=== PATIENT | male | born 1985 | race Hispanic/Latino ===

== ENCOUNTER 2023-02-01 13:55 | Emergency (ER) | payer OTHER ==
[2023-02-01 15:32] LABS: Specific Gravity 1.015 (1.005-1.030); Urine Bilirubin Negative (Negative); Urine Blood Negative (Negative); Urine Clarity Clear (Clear); Urine Color Yellow (Yellow); Urine Glucose Negative (Negative); Urine Protein Negative (Negative)
[2023-02-01] MEDS ORDERED: KETOROLAC 30 MG/ML INJ ONE (15:32)
[2023-02-01] MEDS ORDERED: HYDROCODONE/APAP 5/325 MG TAB ONE (15:32)
[2023-02-01] MEDS ORDERED: ONDANSETRON 4 MG (ODT) TAB ONE (15:32)
--- NOTE | 2023-02-01 16:19 | RAD REPORT ---
EXAM DESCRIPTION: RAD - Abdomen 1 View (KUB) - 02/01/2023 4:12 pm CLINICAL HISTORY: FLANK PAIN Pain COMPARISON: <Comparisons> FINDINGS: The bowel gas pattern is non-obstructive. No evidence of free air or pneumatosis. No suspi cious calcifications. No significant bony findings. IMPRESSION: Negative examination.
--- NOTE | 2023-02-01 17:04 | ER ---
Nurse's Notes [facility] Name: Supa Pereira Age: 38 yrs Sex: Male : 1985 Arrival Date: 02/01/2023 Time: 13:55 Bed 19 Private MD: Diagnosis: Cellulitis of buttock;Abdominal pain, unspecified-left flank pain Presentation: 02/01 14:06 Chief complaint: Patient states: L BUTTOCKS AND ABD PAIN. Coronavirus screen: Vaccine dd1 status: Patient reports receiving the 2nd dose of the covid vaccine. Patient reports receiving the 1st dose of the Covid vaccine. Client denies travel out of the [place] in the last 14 days. Ebola Screen: No symptoms or risks identified at this time. Initial Sepsis Screen: Does the patient meet any 2 criteria? HR > 90 bpm. No. Patient's initial sepsis screen is negative. Does the patient have a suspected source of infection? No. Patient's initial sepsis screen is negative. Risk Assessment: Do you want to hurt yourself or someone else? Patient reports no desire to harm self or others. Onset of symptoms was February 01, 2023. 14:06 Method Of Arrival: Ambulatory dd1 14:06 Acuity: [place] 4 dd1 Triage Assessment: 14:17 General: Appears in no apparent distress. comfortable, Behavior is calm, cooperative. dd1 Pain: Complains of pain in buttocks. Historical: - Allergies: 14:10 UNKNOWN BLOOD PRESSURE MEDICATION; dd1 - Home Meds: 14:10 levothyroxine 75 mcg capsule once [Active]; olmesartan 20 mg oral tablet once [Active]; dd1 - PSHx: 14:10 None; dd1 - Immunization history:: Adult Immunizations up to date. - Social history:: Smoking status: Patient denies any tobacco usage or history of. - Family history:: not pertinent. Screenin:03 [facility] ED Fall Risk Assessment (Adult) History of falling in the last 3 months, iw including since admission No falls in past 3 months (0 pts) Confusion or Disorientation No (0 pts) Intoxicated or Sedated No (0 pts) Impaired Gait No (0 pts) Mobility Assist Device Used No (0 pt) Altered Elimination No (0 pt) Score/Fall Risk Level 0 - 2 = Low Risk Oriented to surroundings, Maintained a safe environment. Abuse screen: Denies threats or abuse. Denies injuries from another. Nutritional screening: No deficits noted. Tuberculosis screening: No symptoms or risk factors identified. Assessment: 15:02 Reassessment: Patient appears in no apparent distress at this time. Patient and/or iw family updated on plan of care and expected duration. Pain level reassessed. Patient is alert, oriented x 3, equal unlabored respirations, skin warm/dry/pink. General: Appears in no apparent distress. comfortable, Behavior is calm, cooperative. Pain: Complains of pain in buttocks. 17:19 Reassessment: Patient appears in no apparent distress at this time. Patient and/or db family updated on plan of care and expected duration. Pain level reassessed. Patient is alert, oriented x 3, equal unlabored respirations, skin warm/dry/pink. Patient states feeling better. General: Appears in no apparent distress. comfortable. Vital Signs: 14:06 Pulse 97; Resp 16; Temp 99.9; Weight 233.6 kg; Height 5 ft. 11 in. ; Pain 4/10; dd1 14:16 BP 152 / 93; dd1 14:16 Pain 4/10; dd1 16:30 BP 148 / 88; Pulse 88; Resp 16; Pulse Ox 99% on R/A; db 14:06 Body Mass Index 71.83 (233.60 kg, 180.34 cm) dd1 14:06 Pain Scale: Adult dd1 14:16 Pain Scale: Adult dd1 ED Course: 13:58 Patient arrived in ED. ts1 14:03 Natividad Milton MD is Attending Physician. cp3 14:10 Triage completed. dd1 14:17 Arm band placed on. dd1 15:00 Connie Henley, RN is Primary Nurse. iw 15:03 Patient has correct armband on for positive identification. Placed in gown. Bed in low iw position. Call light in reach. Side rails up X 1. 16:14 XRAY Abdomen 1 View (KUB) In Process Unspecified. EDMS 17:02 Madhav Oliva MD is Referral Physician. cp3 17:20 Provided Education on: DISCHARGE. db 17:20 No provider procedures requiring assistance completed. Patient did not have IV access db during this emergency room visit. Administered Medications: 12:34 Drug: Ondansetron PO 4 mg Route: PO; db 13:00 Follow up: Response: No adverse reaction iw 15:34 Drug: Ketorolac IM 30 mg Route: IM; Site: right deltoid; db 16:00 Follow up: Response: No adverse reaction iw 15:35 Drug: HYDROcodone-acetaminophen PO 5 mg-325 mg 1 tabs Route: PO; db 16:30 Follow up: Response: No adverse reaction; Pain is decreased iw Medication: 17:20 VIS not applicable for this client. db Outcome: 17:04 Discharge ordered by . all3 17:20 Discharged to home ambulatory. db 17:20 Condition: stable 17:20 Discharge instructions given to patient, Instructed on discharge instructions, follow up and referral plans. Prescriptions given X 3. 17:21 Patient left the ED. db Signatures: Dispatcher [employer] Natividad Diggs MD MD cp3 Connie Henley, RN Debbie Chappell, RN RN Natalie White PAS PAS ts1 Asim Willson, RN RN dd1
--- NOTE | 2023-02-01 17:04 | EDPHYS ---
Physician Documentation [facility] Name: Supa Pereira Age: 38 yrs Sex: Male : 1985 Arrival Date: 02/01/2023 Time: 13:55 Bed 19 Private MD: ED Physician Natividad Milton HPI: 02/01 17:10 This 38 yrs old Male presents to ER via Ambulatory with complaints of PAIN ON cp3 LEFT SIDE / KNOT ON SACRUM. 15:36 Patient is a 38-year-old male who endorses left-sided abdominal discomfort that cp3 radiates from the left flank to the left lower quadrant. The pain started roughly 2 days ago has been intermittent in nature and is associated with nausea and 5 episodes of diarrhea. The diarrhea has resolved. No evidence of melena. The patient also endorsed that he has an area of redness to his left buttocks. Patient denies fever, chills, vomiting. Historical: - Allergies: 14:10 UNKNOWN BLOOD PRESSURE MEDICATION; dd1 - Home Meds: 14:10 levothyroxine 75 mcg capsule once [Active]; olmesartan 20 mg oral tablet once [Active]; dd1 - PSHx: 14:10 None; dd1 - Immunization history:: Adult Immunizations up to date. - Social history:: Smoking status: Patient denies any tobacco usage or history of. - Family history:: not pertinent. ROS: 15:38 Constitutional: Negative for fever, chills, and weight loss, Eyes: Negative for injury, cp3 pain, redness, and discharge, ENT: Negative for injury, pain, and discharge, Neck: Negative for injury, pain, and swelling, Cardiovascular: Negative for chest pain, palpitations, and edema, Respiratory: Negative for shortness of breath, cough, wheezing, and pleuritic chest pain, MS/Extremity: Negative for injury and deformity, Skin: Negative for injury, rash, and discoloration, Neuro: Negative for headache, weakness, numbness, tingling, and seizure, Psych: Negative for depression, anxiety, suicide ideation, homicidal ideation, and hallucinations, Allergy/Immunology: Negative for hives, rash, and allergies, Endocrine: Negative for neck swelling, polydipsia, polyuria, polyphagia, and marked weight changes, Hematologic/Lymphatic: Negative for swollen nodes, abnormal bleeding, and unusual bruising. 15:38 Abdomen/GI: Positive for nausea, vomiting, diarrhea, Left flank pain. 15:38 Back: Positive for flank pain, on the left. 15:38 : Negative for urinary symptoms, hematuria, difficulty urinating, foul smelling urine. 15:38 Skin: Positive for erythema, Patient endorses area of erythema on right buttocks. Exam: 15:38 Constitutional: This is a well developed, well nourished patient who is awake, alert, cp3 and in no acute distress. Head/Face: Normocephalic, atraumatic. Neck: Trachea midline, no thyromegaly or masses palpated, and no cervical lymphadenopathy. Supple, full range of motion without nuchal rigidity, or vertebral point tenderness. No Meningismus. Chest/axilla: Normal chest wall appearance and motion. Nontender with no deformity. No lesions are appreciated. Cardiovascular: Regular rate and rhythm with a normal S1 and S2. No gallops, murmurs, or rubs. Normal PMI, no JVD. No pulse deficits. Respiratory: Lungs have equal breath sounds bilaterally, clear to auscultation and percussion. No rales, rhonchi or wheezes noted. No increased work of breathing, no retractions or nasal flaring. Abdomen/GI: Soft, non-tender, with normal bowel sounds. No distension or tympany. No guarding or rebound. No evidence of tenderness throughout. Back: No spinal tenderness. No costovertebral tenderness. Full range of motion. 15:38 : Patient with area of erythema without fluctuance or induration to the left buttocks 2 x 3 cm. No crepitus, no purulent drainage. No evidence of skin breakdown no necrotizing lesions. 16:59 : no swelling noted to the scrotum, no erythema noted to the scrotum. cp3 Vital Signs: 14:06 Pulse 97; Resp 16; Temp 99.9; Weight 233.6 kg; Height 5 ft. 11 in. ; Pain 4/10; dd1 14:16 BP 152 / 93; dd1 14:16 Pain 4/10; dd1 16:30 BP 148 / 88; Pulse 88; Resp 16; Pulse Ox 99% on R/A; db 14:06 Body Mass Index 71.83 (233.60 kg, 180.34 cm) dd1 14:06 Pain Scale: Adult dd1 14:16 Pain Scale: Adult dd1 MDM: 14:03 Patient medically screened. cp3 15:38 Differential Diagnosis Differential diagnosis includes left flank pain, soft tissue cp3 infection, soft tissue abscess, UTI, kidney stone. Data reviewed: vital signs, nurses notes, lab test result(s). Consideration of Admission/Observation Escalation of care including admission/observation considered. Historians other than the Patient: Visitor at bedside endorses patient also complained of nausea over the last few days. Special discussion: Discussed with patient that would typically do a CT without contrast to assess for renal stone but given patient's BMI will not be able to accommodate CT scanning at this time we will do a KUB in light of mild flank pain and no evidence of hematuria or other symptoms suggestive of acute renal stone. Patient comfortable with plan of care. 16:59 Independent interpretation of the following test(s) in the Emergency Department X-Ray: cp3 My interpretation is KUB interpreted by me and is negative acute for renal stone, bowel obstruction. Response to treatment: the patient's symptoms have markedly improved after treatment. ED course: Patient improved with [place], Toradol, Zofran IM. 08 15:32 Order name: Urinalysis w/ reflexes; Complete Time: 15:35 EDMS 02/01 15:03 Order name: XRAY Abdomen 1 View (KUB); Complete Time: 16:35 cp3 Administered Medications: 12:34 Drug: Ondansetron PO 4 mg Route: PO; db 13:00 Follow up: Response: No adverse reaction iw 15:34 Drug: Ketorolac IM 30 mg Route: IM; Site: right deltoid; db 16:00 Follow up: Response: No adverse reaction iw 15:35 Drug: HYDROcodone-acetaminophen PO 5 mg-325 mg 1 tabs Route: PO; db 16:30 Follow up: Response: No adverse reaction; Pain is decreased iw Disposition Summary: 02/01/23 17:04 Discharge Ordered Location: Home cp3 Problem: new cp3 Symptoms: have improved cp3 Condition: Stable cp3 Diagnosis - Cellulitis of buttock cp3 - Abdominal pain, unspecified - left flank pain cp3 Followup: cp3 - With: Private Physician - When: - Reason: Wound Recheck Followup: cp3 - With: Madhav Oliva MD - When: - Reason: Wound Recheck Discharge Instructions: - Discharge Summary Sheet cp3 - Cellulitis, Adult cp3 - Flank Pain, Adult cp3 Forms: - Medication Reconciliation Form cp3 - Thank You Letter cp3 - Antibiotic Education cp3 - Prescription Opioid Use cp3 - Patient Portal Instructions cp3 Prescriptions: - Hibiclens 4 % Topical liquid - apply 1 application by TOPICAL route 3 times per day for 2 doses; 50 cp3 milliliter; Refills: 0, Product Selection Permitted - Doxycycline Hyclate 100 mg Oral Tablet - take 1 tablet by ORAL route every 12 hours; 20 tablet; Refills: 0, Product cp3 Selection Permitted - Bactrim DS 800-160 mg Oral Tablet - take 1 tablet by ORAL route every 12 hours for 10 days; 20 tablet; Refills: 0, cp3 Product Selection Permitted Signatures: Dispatcher [employer] Natividad Diggs MD MD cp3 Debbie Sprague, RN RN db Asim Willson RN RN dd1 Connie Henley RN iw Corrections: (The following items were deleted from the chart) 15:34 15:04 Urinalysis+U.LAB.BRZ ordered. EDMS EDMS
[2023-02-01 17:39] VITALS: TEMP 99.9
[2023-02-01 17:45] VITALS: BP 148/88; O2SAT 99
== END 2023-02-01 17:21 | disposition home or self-care (01) ==
LOC: ER 13:55
DX: L03.317 Cellulitis of buttock (principal); R10.32 Left lower quadrant pain
CPT/HCPCS: 81003; 74018; 96372; 99284; Q0162

== ENCOUNTER 2023-02-04 18:24 | Emergency (ER) | payer OTHER ==
[2023-02-04] MEDS ORDERED: BUPIVACAINE 0.5% PF 10 ML VIAL ONE (22:15)
[2023-02-04] MEDS ORDERED: IBUPROFEN 400 MG TAB ONE (22:15)
[2023-02-04] MEDS ORDERED: HYDROCODONE/APAP 10/325 TAB ONE (22:15)
[2023-02-04] MEDS ORDERED: LIDOCAINE 1% 20 ML MDV ONE (22:16)
--- NOTE | 2023-02-04 23:12 | ER ---
Nurse's Notes [facility] Name: Supa Pereira Age: 38 yrs Sex: Male : 1985 Arrival Date: 02/04/2023 Time: 18:24 Bed 19 Private MD: Diagnosis: Cutaneous abscess of buttock Presentation: 02/04 18:56 Chief complaint: Patient states: Abscess on left buttock. Seen here on Friday, given nj1 rx for abx. States it got bigger and busted today, pain got somewhat better but still painful. Pt concerned because he saw some black stuff come out of it. Coronavirus screen: Vaccine status: Patient reports receiving the 2nd dose of the covid vaccine. Ebola Screen: Patient denies travel to an Ebola-affected area in the 21 days before illness onset. Initial Sepsis Screen: Does the patient meet any 2 criteria? HR > 90 bpm. No. Patient's initial sepsis screen is negative. Does the patient have a suspected source of infection? No. Patient's initial sepsis screen is negative. Risk Assessment: Do you want to hurt yourself or someone else? Patient reports no desire to harm self or others. Onset of symptoms was February 01, 2023. 18:56 Method Of Arrival: Ambulatory [facility] 18:56 Acuity: [place] 4 nj1 Historical: - Allergies: 19:00 unknown blood pressure medication; nj1 - PMHx: 19:00 Hypertensive disorder; Hypothyroidism; Sleep apnea; nj1 - PSHx: 19:00 None; nj1 - Immunization history:: Client reports receiving the 2nd dose of the Covid vaccine. - Social history:: Smoking status: Patient denies any tobacco usage or history of. Screenin:30 [facility] ED Fall Risk Assessment (Adult) History of falling in the last 3 months, vc1 including since admission No falls in past 3 months (0 pts) Confusion or Disorientation No (0 pts) Intoxicated or Sedated No (0 pts) Impaired Gait No (0 pts) Mobility Assist Device Used No (0 pt) Altered Elimination No (0 pt) Score/Fall Risk Level 0 - 2 = Low Risk Oriented to surroundings, Maintained a safe environment, Educated pt \\T\\ family on fall prevention, incl call for assistance when getting out of bed. Abuse screen: Denies threats or abuse. Nutritional screening: No deficits noted. Tuberculosis screening: No symptoms or risk factors identified. Assessment: 21:27 Reassessment:. General: Appears in no apparent distress. uncomfortable, obese, Behavior vc1 is calm, cooperative, appropriate for age. Pain: Complains of pain in buttocks Pain does not radiate. Pain currently is 10 out of 10 on a pain scale. Noted to be grimacing. Neuro: Level of Consciousness is awake, alert, obeys commands, Oriented to person, place, time, situation, Appropriate for age. Cardiovascular: No deficits noted. Respiratory: Airway is patent Respiratory effort is even, unlabored, Respiratory pattern is regular, symmetrical. GI: No deficits noted. No signs and/or symptoms were reported involving the gastrointestinal system. : No deficits noted. No signs and/or symptoms were reported regarding the genitourinary system. EENT: No deficits noted. No signs and/or symptoms were reported regarding the EENT system. Derm: Abscess located on buttocks "Busted while in the shower, lots of blood, pus and some black stuff came out". 22:39 Reassessment: No changes from previously documented assessment. Patient and/or family vc1 updated on plan of care and expected duration. Pain level reassessed. Patient is alert, oriented x 3, equal unlabored respirations, skin warm/dry/pink. Vital Signs: 18:56 BP 172 / 114; Pulse 119; Resp 18; Temp 97.7; Pulse Ox 98% on R/A; Weight 233.6 kg; nj1 Height 5 ft. 11 in. ; 21:29 BP 140 / 57; Pulse 93; Resp 20; Pulse Ox 97% ; vc1 22:00 BP 146 / 80; Pulse 87; Resp 20; Pulse Ox 97% ; vc1 23:00 BP 149 / 50; Pulse 76; Resp 20; Pulse Ox 96% ; vc1 18:56 Body Mass Index 71.83 (233.60 kg, 180.34 cm) [facility] ED Course: 18:32 Patient arrived in ED. im 18:36 Nash Del Valle PA is PHCP. cp 18:36 Jamie Brothers MD is Attending Physician. cp 19:00 Triage completed. nj1 19:01 Arm band placed on right wrist. nj1 21:27 Marline Mercado RN is Primary Nurse. vc1 21:30 Patient has correct armband on for positive identification. Bed in low position. Call vc1 light in reach. Pulse ox on. NIBP on. 23:11 Jerrell De Santiago MD is Referral Physician. cp 23:18 Provided Education on: wound care. vc1 23:18 Assist provider with I \\T\\ D: of an abscess on buttocks. Patient did not have IV access vc1 during this emergency room visit. Administered Medications: 22:09 Drug: HYDROcodone-acetaminophen PO 10 mg-325 mg 1 tabs Route: PO; vc1 23:19 Follow up: Response: No adverse reaction; Marked relief of symptoms vc1 22:09 Drug: Ibuprofen PO 800 mg Route: PO; vc1 23:19 Follow up: Response: No adverse reaction; Marked relief of symptoms vc1 22:50 Drug: Lidocaine-Epinephrine Infiltration -1%: (1:100,000) 10 ml {Note: administered by 1 nash del valle.} Volume: 20 ml; Route: Infiltration; Site: affected area; 22:50 Drug: Bupivacaine Infiltration (0.5 %) 10 ml {Note: administered by nash del valle .} vc1 Volume: 10 ml; Route: Infiltration; Site: affected area; Medication: 21:31 VIS not applicable for this client. vc1 Outcome: 23:11 Discharge ordered by . cp 23:26 Patient left the ED. vc1 Signatures: Nash Del Valle PA PA cp Calcote, Vanessa RN RN vc1 Cris Lawrence RN RN nj1 Sharon Dee Corrections: (The following items were deleted from the chart) 21:29 21:27 Reassessment: No changes from previously documented assessment. Patient and/or vc1 family updated on plan of care and expected duration. Pain level reassessed. Patient is alert, oriented x 3, equal unlabored respirations, skin warm/dry/pink. vc1 23:15 23:13 Bupivacaine Infiltration (0.5 %) 10 ml 10 ml Infiltration in affected area; vc1 administered by nash del valle vc1 23:15 23:14 Lidocaine-Epinephrine Infiltration -1%: (1:100,000) 10 ml 20 ml Infiltration in vc1 affected area; administered by nash del valle vc1
--- NOTE | 2023-02-04 23:12 | EDPHYS ---
Physician Documentation [facility] Name: Supa Pereira Age: 38 yrs Sex: Male : 1985 Arrival Date: 02/04/2023 Time: 18:24 Bed 19 Private MD: ED Physician Jamie Brothers HPI: 02/04 22:15 This 38 yrs old Male presents to ER via Ambulatory with complaints of Skin cp Problem - on left butt cheek. 22:15 The patient presents with an abscess of the left buttock. cp 22:15 Description: draining, fluctuant, swollen. Onset: The symptoms/episode began/occurred cp last week, drainage started today. 22:15 Associated signs and symptoms: The patient has no apparent associated signs or cp symptoms. Patient reports he was seen in this ED this past Friday and started on oral antibiotics: Doxycycline and Bactrim. Historical: - Allergies: 19:00 unknown blood pressure medication; nj1 - PMHx: 19:00 Hypertensive disorder; Hypothyroidism; Sleep apnea; nj1 - PSHx: 19:00 None; nj1 - Immunization history:: Client reports receiving the 2nd dose of the Covid vaccine. - Social history:: Smoking status: Patient denies any tobacco usage or history of. ROS: 22:20 Skin: Positive for abscess. cp 22:20 Constitutional: Negative for body aches, chills, fever, poor PO intake. cp 22:20 All other systems are negative. cp Exam: 22:25 Constitutional: The patient appears in no acute distress, alert, awake, non-toxic, well cp developed, well nourished, morbid obesity 22:25 Head/Face: Normocephalic, atraumatic. cp 22:25 Chest/axilla: Inspection: normal. 22:25 Cardiovascular: Rate: tachycardic, Rhythm: regular. 22:25 Respiratory: the patient does not display signs of respiratory distress, Respirations: normal, no use of accessory muscles, no retractions. 22:25 Abdomen/GI: Inspection: obese 22:25 Skin: abscess, that is moderate sized, of the inner left buttock, with drainage, that is bloody, that is purulent, with fluctuance, that is moderate. Vital Signs: 18:56 BP 172 / 114; Pulse 119; Resp 18; Temp 97.7; Pulse Ox 98% on R/A; Weight 233.6 kg; nj1 Height 5 ft. 11 in. ; 21:29 BP 140 / 57; Pulse 93; Resp 20; Pulse Ox 97% ; vc1 22:00 BP 146 / 80; Pulse 87; Resp 20; Pulse Ox 97% ; vc1 23:00 BP 149 / 50; Pulse 76; Resp 20; Pulse Ox 96% ; vc1 18:56 Body Mass Index 71.83 (233.60 kg, 180.34 cm) [facility] Procedures: 23:00 I \T\ D: Incision and drainage was performed for an abscess of the left buttock Prepped cp with Betadine, Anesthetized with lidocaine with epi and 0.5% marcaine. Incised with #11 blade. Drained moderate amount purulent fluid. bloody fluid. Packed with iodoform gauze, Dressing: sterile 4x4 gauze, the patient tolerated the procedure well. MDM: 19:10 Patient medically screened. 23:10 Data reviewed: vital signs, nurses notes. 23:10 Differential diagnosis: abscess, cellulitis, sepsis. I considered the following cp discharge prescriptions or medication management in the emergency department Medications were administered in the Emergency Department. See MAR. Counseling: I had a detailed discussion with the patient and/or guardian regarding: the historical points, exam findings, and any diagnostic results supporting the discharge/admit diagnosis, the need for outpatient follow up, a general surgeon, to return to the emergency department if symptoms worsen or persist or if there are any questions or concerns that arise at home. Response to treatment: the patient's symptoms have markedly improved after treatment, and as a result, I will discharge patient. 02/04 21:58 Order name: I\T\D Setup; Complete Time: 22:01 cp Administered Medications: 22:09 Drug: HYDROcodone-acetaminophen PO 10 mg-325 mg 1 tabs Route: PO; 1 23:19 Follow up: Response: No adverse reaction; Marked relief of symptoms vc1 22:09 Drug: Ibuprofen PO 800 mg Route: PO; 1 23:19 Follow up: Response: No adverse reaction; Marked relief of symptoms 1 22:50 Drug: Lidocaine-Epinephrine Infiltration -1%: (1:100,000) 10 ml {Note: administered by 1 nash page.} Volume: 20 ml; Route: Infiltration; Site: affected area; 22:50 Drug: Bupivacaine Infiltration (0.5 %) 10 ml {Note: administered by nash del valle .} vc1 Volume: 10 ml; Route: Infiltration; Site: affected area; Disposition Summary: 02/04/23 23:11 Discharge Ordered Location: Home cp Problem: an ongoing problem cp Symptoms: have improved cp Condition: Stable cp Diagnosis - Cutaneous abscess of buttock cp Followup: cp - With: Jerrell De Santiago MD - When: 1 - 2 days - Reason: Wound Recheck Discharge Instructions: - Discharge Summary Sheet cp - Skin Abscess cp - Incision and Drainage cp - Incision and Drainage, Care After cp Forms: - Medication Reconciliation Form cp - Thank You Letter cp - Antibiotic Education cp - Prescription Opioid Use cp - Patient Portal Instructions cp - Work release form vc1 Prescriptions: - acetaminophen-codeine 300-30 mg Oral tablet - take 2 tablet by ORAL route 3 times per day; 12 tablet; Refills: 0, Product cp Selection Permitted - Ibuprofen 800 mg Oral Tablet - take 1 tablet by ORAL route every 8 hours As needed take with food; 30 tablet; cp Refills: 0, Product Selection Permitted Signatures: Nash Del Valle PA PA cp Calcote, Vanessa RN RN vc1 Cris Lawrence RN RN nj1 Corrections: (The following items were deleted from the chart) 02/05 23:20 02/04 22:40 Skin: Positive for abscess, cp cp
== END 2023-02-04 23:26 | disposition home or self-care (01) ==
LOC: ER 18:24
PROC: 0H98XZZ Drainage of Buttock Skin, External Approach (ICD-10-PCS; principal; 2023-02-04)
DX: L02.31 Cutaneous abscess of buttock (principal)
CPT/HCPCS: 10060; J2001